=== PATIENT | female | born 1990 | race Caucasian/White ===

== ENCOUNTER 2016-06-14 11:58 | Emergency (ER) | payer OTHER ==
[2016-06-14] MEDS ORDERED: DEXAMETHASONE SOD PHOS INJ 10 MG/1 ML VIAL IM ONE (13:36)
[2016-06-14] MEDS ORDERED: METHYLPREDNISOLONE ACETATE INJ 40 MG/1 ML ML IM ONE (13:36)
[2016-06-14] MEDS ORDERED: DIPHENHYDRAMINE HCL 25 MG CAPSULE PO ONE (13:37)
--- NOTE | 2016-06-14 13:57 | ER Document Report ---
ED General - General Chief Complaint: Rash Stated Complaint: RASH TRAVEL OUTSIDE OF THE [place] IN LAST 30 DAYS: No - HPI Onset: Yesterday Onset/Duration: Persistent Quality of pain: Burning - itchy, Other - Related Data Allergies/Adverse Reactions: No Known Allergies Allergy (Verified 06/14/16 12:16) Past Medical History - Social History Smoking Status: Never Smoker Chew tobacco use (# tins/day): No Frequency of alcohol use: None Drug Abuse: None Family History: None Patient has suicidal ideation: No Patient has homicidal ideation: No Pulmonary Medical History: Reports: Hx Asthma Past Surgical History: Reports: Hx Oral Surgery - left knee surgery - Immunizations Immunizations up to date: Yes Review of Systems - Review of Systems Constitutional: No symptoms reported EENT: No symptoms reported Cardiovascular: No symptoms reported Respiratory: No symptoms reported Gastrointestinal: No symptoms reported Genitourinary: No symptoms reported Female Genitourinary: No symptoms reported Musculoskeletal: No symptoms reported Skin: Rash - generalized Hematologic/Lymphatic: No symptoms reported Neurological/Psychological: No symptoms reported Physical Exam - Vital signs Vitals: Temp Pulse Resp BP Pulse Ox 98.1 F 76 16 133/76 H 99 06/14/16 12:17 06/14/16 12:17 06/14/16 12:17 06/14/16 12:17 06/14/16 12:17 Interpretation: Normal - General General appearance: Appears well, Alert - HEENT Head: Normocephalic, Atraumatic Eyes: Normal Pupils: PERRL - Respiratory Respiratory status: No respiratory distress Chest status: Nontender Breath sounds: Normal Chest palpation: Normal - Cardiovascular Rhythm: Regular Heart sounds: Normal auscultation Murmur: No - Abdominal Inspection: Normal Distension: No distension Bowel sounds: Normal Tenderness: Nontender Organomegaly: No organomegaly - Back Back: Normal, Nontender - Extremities General upper extremity: Normal inspection, Nontender, Normal color, Normal ROM , Normal temperature General lower extremity: Normal inspection, Nontender, Normal color, Normal ROM , Normal temperature, Normal weight bearing. No: Yenny's sign - Neurological Neuro grossly intact: Yes Cognition: Normal Orientation: AAOx4 Kelly Coma Scale Eye Opening: Spontaneous [place] Coma Scale Verbal: Oriented [place] Coma Scale Motor: Obeys Commands [place] Coma Scale Total: 15 Speech: Normal Motor strength normal: LUE, RUE, LLE, RLE Sensory: Normal - Psychological Associated symptoms: Normal affect, Normal mood - Skin Skin Temperature: Warm Skin Moisture: Dry Skin Color: Normal Character of irregularity: Urticarial Course - Vital Signs Vital signs: Temp Pulse Resp BP Pulse Ox 98.1 F 76 16 133/76 H 99 06/14/16 12:17 06/14/16 12:17 06/14/16 12:17 06/14/16 12:17 06/14/16 12:17 Discharge - Discharge Clinical Impression: Urticaria Disposition: HOME, SELF-CARE Additional Instructions: Allergic Contact Dermatitis You have a local allergic reaction, called contact dermatitis. This an allergy to something in contact with your skin. Poison brittanie, jewelry, soaps, perfumes, and chemicals are common causes. Typically, an itchy rash develops a few days after the exposure. If the reaction is severe, blisters may develop. Two to three weeks may be required for healing. Generally, treatment consists of: (1) a thorough washing with soap to remove the offending substance, (2) application of a cortisone cream, and (3) antihistamines for itching. If the reaction is particularly severe, further measures may be required. These can include soaking in epsom salts or Annika's solution, and oral cortisone medications. Call the doctor if the rash worsens despite treatment, or if signs of infection occur such as spreading redness, red streaks, swollen glands, swelling , or fever. Prescriptions: Diphenhydramine HCl [Benadryl 25 mg Capsule] 25 mg PO Q6 PRN #25 capsule PRN Reason: Famotidine [Pepcid 40 mg Tablet] 40 mg PO DAILY #10 tablet Prednisone [Deltasone 20 mg Tablet] 3 tab PO DAILY 5 Days
[2016-06-14 14:14] VITALS: BP 130/75
== END 2016-06-14 14:14 | disposition home or self-care (01) ==
LOC: ER 11:58
DX: L50.9 Urticaria, unspecified (principal)
CPT/HCPCS: 99282

== ENCOUNTER 2019-07-06 06:25 | Emergency (ER) | payer OTHER ==
--- NOTE | 2019-07-06 08:53 | ER Document Report ---
ED Respiratory Problem - General Chief Complaint: Cold Symptoms Stated Complaint: BODY ACHES,CHILLS,COUGH Time Seen by Provider: 07/06/19 08:46 Primary Care Provider: FORTINO STARR [Primary Care Provider] - Follow up as needed Notes: CHIEF COMPLAINT: Sore throat, facial congestion for 12 hours HPI: 28-year-old female presenting to the emergency department complaining of sore throat, facial congestion, dry cough over the last 12 hours. Low-grade fever this morning. Took Mucinex one time last night without resolution of symptoms. Denies chest pain shortness of breath abdominal pain nausea vomiting. ROS: See HPI - all other systems were reviewed and are otherwise negative Constitutional: + fever Eyes: no drainage, no blurred vision ENT: + runny nose, + sore throat Cardiovascular: no chest pain Resp: no SOB, + cough GI: no vomiting, no diarrhea, no abdominal pain : no dysuria Integumentary: no rash Allergy: no hives Musculoskeletal: no extremity pain or swelling Neurological: no numbness/tingling, no weakness MEDICATIONS: I agree with the patient medications as charted by the RN. ALLERGIES: I agree with the allergies as charted by the RN. PAST MEDICAL HISTORY/PAST SURGICAL HISTORY: Reviewed and agree as charted by RN. SOCIAL HISTORY: Reviewed and agree as charted by RN. FAMILY HISTORY: No significant familial comorbid conditions directly related to patient complaint EXAM: Reviewed vital signs as charted by RN. CONSTITUTIONAL: Alert and oriented and responds appropriately to questions. Well-appearing; well-nourished, no acute distress HEAD: Normocephalic; atraumatic EYES: PERRL; Conjunctivae clear, sclerae non-icteric ENT: normal nose; + rhinorrhea; moist mucous membranes; pharynx without lesions noted, no uvula edema or deviation, no tonsillar hypertrophy, phonation normal NECK: Supple without meningismus; non-tender; no cervical lymphadenopathy, no masses CARD: RRR; no murmurs, no clicks, no rubs, no gallops; symmetric distal pulses RESP: Normal chest excursion without splinting or tachypnea; breath sounds clear and equal bilaterally; no wheezes, no rhonchi, no rales, pulse oximetry 98% on room air not hypoxic ABD/GI: Normal bowel sounds; non-distended; soft, non-tender, no rebound, no guarding; no palpable organomegaly or masses. BACK: The back appears normal and is non-tender to palpation, there is no CVA tenderness EXT: Normal ROM in all joints; non-tender to palpation; no cyanosis, no effusions, no edema SKIN: Normal color for age and race; warm; dry; good turgor; no acute lesions noted NEURO: Moves all extremities equally; Motor and sensory function intact PSYCH: The patient's mood and manner are appropriate. Grooming and personal hygiene are appropriate. MDM: 28-year-old female presenting with upper respiratory symptoms 28-year-old female presenting with upper respiratory symptoms, sore throat. Unlikely to be pneumonia given short length of symptoms. Will check flu and strep TRAVEL OUTSIDE OF THE [place] IN LAST 30 DAYS: No - Related Data Allergies/Adverse Reactions: No Known Allergies Allergy (Verified 06/14/16 12:16) Home Medications: albuterol Past Medical History - Social History Smoking Status: Never Smoker Chew tobacco use (# tins/day): No Frequency of alcohol use: None Drug Abuse: None Family History: None Patient has suicidal ideation: No Patient has homicidal ideation: No Pulmonary Medical History: Reports: Hx Asthma Past Surgical History: Reports: Hx Oral Surgery - left knee surgery - Immunizations Immunizations up to date: Yes Physical Exam - Vital signs Vitals: Temp Pulse Resp BP Pulse Ox 100.1 F 115 H 20 138/71 H 98 07/06/19 06:29 07/06/19 06:29 07/06/19 06:29 07/06/19 06:29 07/06/19 06:29 Course - Re-evaluation Re-evalutation: 07/06/19 09:51 Patient is positive for influenza A. We discussed this at length we discussed return precautions. I did offer Tamiflu which she declines. - Vital Signs Vital signs: Temp Pulse Resp BP Pulse Ox 99.7 F 115 H 20 138/71 H 98 07/06/19 09:03 07/06/19 06:29 07/06/19 06:29 07/06/19 06:29 07/06/19 06:29 Discharge - Discharge Clinical Impression: Influenza A Condition: Stable Disposition: HOME, SELF-CARE Additional Instructions: 1. hydrate well at home with juices and water 2. treat fevers and body aches with Motrin and Tylenol 3. out of school or work for the next 2 days 4. follow up recheck with your PCP in 1-2 days, call for appt. 5. return to the ED for worsening condition Prescriptions: Ondansetron [Zofran Odt 4 mg Tablet] 1 - 2 tab PO Q4H PRN #15 tab.rapdis PRN Reason: For Nausea/Vomiting [facility]errals: [facility] [Primary Care Provider] - Follow up as needed
[2019-07-06] MEDS ORDERED: IBUPROFEN 600 MG TABLET PO ONE (08:55)
[2019-07-06 09:38] LABS: A TYPE INFLUENZA AG POSITIVE (NEGATIVE); B INFLUENZA AG NEGATIVE (NEGATIVE)
[2019-07-06] MEDS ORDERED: ONDANSETRON 4 MG TAB.RAPDIS PO ONE (09:52)
[2019-07-06 10:09] VITALS: BP 103/63
[2019-07-06 10:16] LABS: APPEARANCE,URINE CLOUDY; BILIRUBIN,URINE NEGATIVE (NEGATIVE); COLOR,URINE YELLOW; GLUCOSE, URINE NEGATIVE (NEGATIVE); KETONES,URINE NEGATIVE (NEGATIVE); LEUKOCYTE ESTERASE,URINE SMALL (NEGATIVE); NITRITE,URINE NEGATIVE (NEGATIVE); PROTEIN,URINE 30 mg/dL (NEGATIVE); URINE SPECIFIC GRAVITY 1.018; UROBILINOGEN,URINE NEGATIVE mg/dL (<2.0)
== END 2019-07-06 10:09 | disposition home or self-care (01) ==
LOC: ER 06:25
DX: J10.1 Influenza due to other identified influenza virus with other respiratory manifestations (principal); R05 Cough; Z79.899 Other long term (current) drug therapy; J45.909 Unspecified asthma, uncomplicated
CPT/HCPCS: 99283; 87070; 87880; 81001; 87804; S0119